=== PATIENT | female | born 1945 | race Hispanic/Latino ===

== ENCOUNTER 2019-02-13 07:40 | Inpatient (IN) | payer MEDICARE ==
[~2019-02-13] VITALS: Ht 160 cm; Wt 82.3 kg
[2019-02-13] VITALS (19 sets, daily range): BP systolic 101–117; BP diastolic 53–67
[~2019-02-13 07:40] MED LIST: CHOL100053 PO; HYDR-4457 PO; LEVO500T2 PO; METO50TA18 PO; MULT-415 PO
[2019-02-13] MEDS ORDERED: FENTANYL CITRATE PF 50 MCG/1 ML 2ML VIAL ONE ×2 (08:07→20:38)
[2019-02-13] MEDS ORDERED: ZOSYN 3.375GM+NS 50ML 50 ML IV ONE ×2 (08:18→13:52)
[2019-02-13 08:38] LABS: BASOPHILS % (AUTO) 0.3 % (0.0-5.0); HEMATOCRIT 32.4 % (36-48); LYMPHOCYTES % (AUTO) 17.2 % (21.0-51.0); MEAN CORPUSCULAR HEMOGLOBIN 31.2 pg (27.0-33.0); MEAN CORPUSCULAR HGB CONC 33.5 g/dL (32.0-36.0); MEAN CORPUSCULAR VOLUME 93.2 fL (79-99); MONOCYTES % (AUTO) 9.2 % (3.0-13.0); NEUTROPHILS % (AUTO) 73.3 % (40.0-77.0); PLATELET COUNT (AUTO) 257 K/uL (130-400); RED BLOOD CELL COUNT(AUTO) 3.48 MIL/uL (4.00-5.50); RED CELL DISTRIBUTION WIDTH 14.7 % (11.0-15.5); WHITE BLOOD COUNT (AUTO) 11.5 K/uL (4.8-10.8)
[2019-02-13 09:27] LABS: CARBON DIOXIDE 25 mmol/L (21-32); CHLORIDE 101 mmol/L (101-111); CREATININE 0.8 mg/dL (0.5-1.5); GLOMERULAR FILTR. RATE CALC 74 mL/min (>60); GLUCOSE,RANDOM 125 mg/dL (70-105); POTASSIUM 3.8 mmol/L (3.5-5.1); SODIUM SERUM 138 mmol/L (136-145); UREA NITROGEN, BLOOD 17 mg/dL (7-18)
[2019-02-13] MEDS ORDERED: VANCOMYCIN 1GM+NS 250ML 250 ML IV ONE (09:27)
[2019-02-13 09:29] LABS: INR 1.02 (0.85-1.15); PARTIAL THROMBOPLASTIN TIME 27.7 SEC (26.3-35.5); PROTHROMBIN TIME 10.7 SEC (9.6-11.6)
[2019-02-13] MEDS ORDERED: IOHEXOL 350 MG/ML 100ML INFUS..BTL IV ONE (09:37)
[2019-02-13 09:38] LABS: ALANINE AMINOTRANSFERASE 15 U/L (12-78); ALBUMIN 2.2 g/dL (3.5-5.0); ASPARTATE AMINOTRANSFERASE 30 U/L (10-37); BILIRUBIN,TOTAL 0.7 mg/dL (0.2-1.0); CREATINE KINASE, TOTAL 44 U/L (21-232); MYOGLOBIN 49 ng/mL (10-92); TOTAL PROTEIN, SERUM 6.8 g/dL (6.0-8.3); TROPONIN I < 0.04 ng/mL (0.00-0.06)
[2019-02-13 10:57] LABS: APPEARANCE,URINE Clear (CLEAR); BILIRUBIN,URINE Negative (NEGATIVE); COLOR,URINE Yellow (YELLOW); GLUCOSE, URINE (UA) Negative (NEGATIVE); KETONES,URINE Negative (NEGATIVE); LEUKOCYTE ESTERASE ,URINE Negative (NEGATIVE); NITRATE,URINE Negative (NEGATIVE); OCCULT BLOOD,URINE Negative (NEGATIVE); PH,URINE 5.5 (5.0-8.0); PROTEIN,URINE Negative (NEGATIVE)
[2019-02-13] MEDS ORDERED: SODIUM CHLORIDE 0.9% 10 ML VIAL IVP PRN (16:00)
[2019-02-13] MEDS ORDERED: VANCOMYCIN PROTOCOL PER PHARMACY IV SCH (16:00)
--- NOTE | 2019-02-13 16:16 | NUR ---
IRRIGATION OF LEFT GROIN WOUND PATIENT CURRENTLY BEING ADMITTED TO ORTHO FLOOR. NOTED DRY DRESSING SOAKED IN PURULENT DRAINAGE AND WOUND PACKED WITH IODOFORM ALSO SOAKED IN PURULENT DRAINAGE. NO NOTED PURULENT DRAINAGE OOZING OUT OF WOUND. INCISION TO LEFT GROIN IRRIGATED WITH 120SS OF STERILE SALINE. CULTURES COLLECTED ORDERED. PACKED WITH 62.5CM OF IODOFORM PACKING. ABDOMINAL PADS PLACED OVER INCISION AND TAPED. PENDING FURTHER ORDERS FROM MD. WILL CONTINUE TO MONITOR PT CLOSELY.
[2019-02-13] MEDS ORDERED: ACETAMINOPHEN EXTRA STRENGTH 500 MG TABLET PO PRN ×3 (16:30→21:40)
[2019-02-13] MEDS ORDERED: HYDROCODONE/ACETAMINOPHEN 5/325 MG TAB PO PRN (16:30)
[2019-02-13] MEDS: ZOSYN 3.375GM+NS 50ML 50 ML IV SCH (17:13)
[2019-02-13] MEDS ORDERED: COMPOUND IV REFRIGERATED 1 EACH IVSOLN MISC PRN (18:45)
--- NOTE | 2019-02-13 20:10 | NUR ---
PACU STAFF HERE TO TRANSFER PATIENT TO OR. PATIENT AWAKE AND ALERT, NO ACUTE DISTRESS NOTED.
[2019-02-13] MEDS ORDERED: PROPOFOL 10 MG/ML 20ML VIAL IV ONE (20:38)
[2019-02-13] MEDS ORDERED: ONDANSETRON HCL 4 MG/2 ML VIAL ONE (20:38)
[2019-02-13] MEDS ORDERED: DEXAMETHASONE SOD PHOSPHATE 10MG/ML 1ML VIAL ONE (20:38)
[2019-02-13] MEDS ORDERED: LIDOCAINE PF 2% 5ML ABBOJECT ONE (20:38)
[2019-02-13] MEDS ORDERED: MIDAZOLAM HCL 1 MG/ML 2ML VIAL ONE (20:38)
[2019-02-13] MEDS: VANCOMYCIN 0.75 GM in N.S. 250 ML IV SCH ×2 (20:50→21:00)
[2019-02-13] MEDS ORDERED: ROCURONIUM 10MG/1ML SYR 10 MG/ML ML ONE (20:59)
[2019-02-13] MEDS ORDERED: NEOSTIGMINE 5MG/5ML SYR IV ONE (21:15)
[2019-02-13] MEDS ORDERED: GLYCOPYRROLATE 1 MG/5 ML SYRINGE ONE (21:15)
--- NOTE | 2019-02-13 22:10 | NUR ---
PACU STAFF CALLED IN REPORT. PATIENT S/P I&D OF LEFT INGUINAL ABSCESS WITH PLACEMENT OF CONTINUOUS WOUND VAC AT 125.
--- NOTE | 2019-02-13 22:23 | NUR ---
PATIENT RETURNED FROM OR WITH CONTINUOUS WOUND VAC AT 125 TO LEFT GROIN. PATIENT AWAKE AND ALERT, STATES FEELS BETTER AND DENIES PAIN AT THIS TIME. POST-OP VITAL SIGNS STABLE AND NO ACUTE DISTRESS NOTED.
[2019-02-13] MEDS: FAMOTIDINE/PF 20 MG/2 ML VIAL IV SCH (22:51)
[2019-02-13] MEDS: SODIUM CHLORIDE 0.9% 1000ML 1,000 ML IV SCH (22:51)
[2019-02-14] VITALS (9 sets, daily range): BP systolic 102–130; BP diastolic 51–75
[2019-02-14] MEDS: ZOSYN 3.375GM+NS 50ML 50 ML IV SCH ×3 (02:32→18:27)
[2019-02-14 05:40] LABS: BASOPHILS % (AUTO) 0.7 % (0.0-5.0); EOSINOPHILS % (AUTO) 1.5 % (0.0-8.0); HEMATOCRIT 26.4 % (36-48); LYMPHOCYTES % (AUTO) 18.4 % (21.0-51.0); MEAN CORPUSCULAR HEMOGLOBIN 31.5 pg (27.0-33.0); MEAN CORPUSCULAR HGB CONC 33.8 g/dL (32.0-36.0); MEAN CORPUSCULAR VOLUME 92.9 fL (79-99); MONOCYTES % (AUTO) 10.9 % (3.0-13.0); NEUTROPHILS % (AUTO) 68.5 % (40.0-77.0); PLATELET COUNT (AUTO) 257 K/uL (130-400); RED BLOOD CELL COUNT(AUTO) 2.84 MIL/uL (4.00-5.50); RED CELL DISTRIBUTION WIDTH 14.8 % (11.0-15.5); WHITE BLOOD COUNT (AUTO) 6.2 K/uL (4.8-10.8)
[2019-02-14 05:52] LABS: CREATININE 0.7 mg/dL (0.5-1.5); POTASSIUM 3.9 mmol/L (3.5-5.1)
--- NOTE | 2019-02-14 07:50 | NUR ---
cm note met with patient and son [place]ia. pt states resides home alone. independent and active athome. no dme. states dc plan is back to same home setting at dc. Addendum: 02/15/19 at 0751 by YONIS BARRETT CM Amended: Links added.
[2019-02-14] MEDS: VANCOMYCIN 0.75 GM in N.S. 250 ML IV SCH ×2 (08:27→21:21)
[2019-02-14] MEDS: ENOXAPARIN SODIUM 40 MG/0.4 ML SYRINGE SQ SCH (08:28)
[2019-02-14] MEDS: FAMOTIDINE/PF 20 MG/2 ML VIAL IV SCH ×2 (08:28→20:18)
[2019-02-14] MEDS: SODIUM CHLORIDE 0.9% 1000ML 1,000 ML IV SCH (10:35)
[2019-02-15] MEDS: ZOSYN 3.375GM+NS 50ML 50 ML IV SCH ×3 (02:29→17:45)
[2019-02-15 03:40] VITALS: BP 110/68
[2019-02-15 05:41] LABS: MEAN CORPUSCULAR HEMOGLOBIN 31.9 pg (27.0-33.0); MEAN CORPUSCULAR HGB CONC 34.2 g/dL (32.0-36.0); MEAN CORPUSCULAR VOLUME 93.4 fL (79-99); NUCLEATED RED BLOOD CELLS 0.2 % (0.0-0.19); PLATELET COUNT (AUTO) 247 K/uL (130-400); RED CELL DISTRIBUTION WIDTH 14.9 % (11.0-15.5); WHITE BLOOD COUNT (AUTO) 5.7 K/uL (4.8-10.8)
[2019-02-15 05:50] LABS: BAND NEUTROPHILS % (MANUAL) 4 % (0-2); LYMPHOCYTES % (MANUAL) 16 % (22-44); MONOCYTES % (MANUAL) 8 % (2-9); SEGMENTED NEUTROPHILS % 72 % (40-70)
[2019-02-15 05:51] LABS: MAN.DIFF COMMENT-IMPRESSION MANUAL DIFFERENTIAL; PLATELET MORPHOLOGY COMMENT ADEQUATE
[2019-02-15 05:56] LABS: CREATININE 0.8 mg/dL (0.5-1.5); POTASSIUM 3.6 mmol/L (3.5-5.1)
[2019-02-15 07:00] VITALS: BP 113/66
[2019-02-15] MEDS: VANCOMYCIN 1GM+NS 250ML 250 ML IV SCH ×2 (09:33→20:41)
[2019-02-15] MEDS: FAMOTIDINE/PF 20 MG/2 ML VIAL IV SCH ×2 (09:34→20:40)
[2019-02-15] MEDS: ENOXAPARIN SODIUM 40 MG/0.4 ML SYRINGE SQ SCH (09:34)
[2019-02-15 11:00] VITALS: BP 104/67
[2019-02-15] MEDS: SODIUM CHLORIDE 0.9% 1000ML 1,000 ML IV SCH (13:17)
[2019-02-15 16:00] VITALS: BP 107/62
--- NOTE | 2019-02-15 18:30 | NUR ---
WOUND VAC DRESSING CHANGE PERFORMED WOUND VAC DRESSING CHANGE TO LEFT GROIN. REMOVED OLD DRESSING, 1 BLACK FOAM, WOUND BED BEEFY RED IN COLOR. LENGTH 9 CM, WIDTH 2CM, DEPTH 2CM. UNDERMINING PRESENT RIGHT SIDE OF INCISION 5CM, AND UNDERMINING ON LEFT SIDE OF INCISION 4CM. CLEANSED WOUND AREA WITH NS, PATTED DRY WITH 4X4 GAUZE. PLACED BLACK FOAM X1 TO LEFT GROIN INCISION, REAPPLIED CONTINUOUS SUCTION 125 MMHG, NO LEAKS NOTED. PATIENT TOLERATED PROCEDURE WELL.
[2019-02-15] MEDS: HYDROCODONE/ACETAMINOPHEN 5/325 MG TAB PO PRN (18:44)
[2019-02-15 20:04] VITALS: BP 117/71
[2019-02-15 23:47] VITALS: BP 117/72
[2019-02-16] MEDS: ZOSYN 3.375GM+NS 50ML 50 ML IV SCH (02:34)
[2019-02-16] MEDS: SODIUM CHLORIDE 0.9% 1000ML 1,000 ML IV SCH (02:35)
[2019-02-16 03:07] VITALS: BP 125/67
[2019-02-16 04:34] LABS: BASOPHILS % (AUTO) 0.9 % (0.0-5.0); EOSINOPHILS % (AUTO) 2.1 % (0.0-8.0); HEMATOCRIT 29.5 % (36-48); MEAN CORPUSCULAR HEMOGLOBIN 31.2 pg (27.0-33.0); MEAN CORPUSCULAR HGB CONC 33.1 g/dL (32.0-36.0); MEAN CORPUSCULAR VOLUME 94.2 fL (79-99); MONOCYTES % (AUTO) 11.3 % (3.0-13.0); NEUTROPHILS % (AUTO) 57.7 % (40.0-77.0); NUCLEATED RED BLOOD CELLS 0.2 % (0.0-0.19); PLATELET COUNT (AUTO) 283 K/uL (130-400); RED BLOOD CELL COUNT(AUTO) 3.13 MIL/uL (4.00-5.50); WHITE BLOOD COUNT (AUTO) 6.6 K/uL (4.8-10.8)
[2019-02-16 04:55] LABS: CREATININE 0.7 mg/dL (0.5-1.5); POTASSIUM 3.3 mmol/L (3.5-5.1)
[2019-02-16] MEDS ORDERED: POTASSIUM CHLORIDE 10% ELIXIR 20 MEQ/15 ML UDCUP PO PRN (05:15)
[2019-02-16] MEDS ORDERED: LIDOCAINE HCL-MPF 1% 2ML VIAL IVP PRN (05:15)
[2019-02-16] MEDS ORDERED: POTASSIUM CHLORIDE 20MEQ/100ML 100 ML IV PRN (05:15)
[2019-02-16] MEDS ORDERED: POTASSIUM CHLORIDE 20 MEQ ERTAB PO ONE (05:19)
[2019-02-16] MEDS ORDERED: MAGNESIUM 2GM PREMIX 50ML 50 ML IV PRN (05:30)
[2019-02-16 07:44] VITALS: BP 117/57
[2019-02-16] MEDS: ENOXAPARIN SODIUM 40 MG/0.4 ML SYRINGE SQ SCH (10:04)
[2019-02-16] MEDS: FAMOTIDINE/PF 20 MG/2 ML VIAL IV SCH ×2 (10:04→21:26)
[2019-02-16] MEDS: POTASSIUM CHLORIDE 20 MEQ ERTAB PO PRN (10:05)
[2019-02-16 11:13] VITALS: BP 131/81
[2019-02-16] MEDS ORDERED: LEVO500T2 PO (16:14)
[2019-02-16 16:19] VITALS: BP 127/75
--- NOTE | 2019-02-16 16:45 | NUR ---
REPORT CALLED TO HYACINTH VELASCO FROM [facility], ROD VERBALIZED UNDERSTANDING. INFORMED HER PENDING WOUND VAC TO ARRIVE. ORDERS TO DISCHARGE WHEN HOME HEALTH AND WOUND VAC CLEARED. WILL CONTINUE TO MONITOR.
--- NOTE | 2019-02-16 18:25 | NUR ---
NO WOUND VAC YET FROM COUNTS INCLUDE 234 BEDS AT THE [facility]. WILL CONTINUE TO MONITOR.
[2019-02-16 20:00] VITALS: BP 119/71
[2019-02-16 23:35] VITALS: BP 128/74
[2019-02-17 04:00] VITALS: BP 135/82
[2019-02-17 04:23] LABS: CREATININE 0.6 mg/dL (0.5-1.5); POTASSIUM 3.6 mmol/L (3.5-5.1)
[2019-02-17 08:12] VITALS: BP 141/86
[2019-02-17] MEDS ORDERED: LEVOFLOXACIN 750 MG TABLET PO SCH (09:00)
[2019-02-17] MEDS: FAMOTIDINE/PF 20 MG/2 ML VIAL IV SCH (10:46)
[2019-02-17] MEDS: ENOXAPARIN SODIUM 40 MG/0.4 ML SYRINGE SQ SCH (10:47)
[2019-02-17 11:41] VITALS: BP 139/89
[2019-02-17] MEDS: HYDROCODONE/ACETAMINOPHEN 5/325 MG TAB PO PRN (13:46)
== END 2019-02-17 17:06 | disposition home health service (06) | DRG 857 ==
LOC: EDH 07:40 → OBSVTOIN 12:28 → EDHIP 12:28 → 4AH 14:12 → 4BH 02-15 12:37
PROVIDERS: ADMIT Family Medicine; ATTEND Family Medicine
PROC: 0J9C0ZZ Drainage of Pelvic Region Subcutaneous Tissue and Fascia, Open Approach (ICD-10-PCS; principal; 2019-02-13 20:38)
DX: T81.41XA Infection following a procedure, superficial incisional surgical site, initial encounter (principal); L02.211 Cutaneous abscess of abdominal wall; C85.90 Non-Hodgkin lymphoma, unspecified, unspecified site; E44.0 Moderate protein-calorie malnutrition; D72.829 Elevated white blood cell count, unspecified; B96.20 Unspecified Escherichia coli [E. coli] as the cause of diseases classified elsewhere; B96.1 Klebsiella pneumoniae [K. pneumoniae] as the cause of diseases classified elsewhere; Y92.89 Other specified places as the place of occurrence of the external cause; Z68.32 Body mass index [BMI] 32.0-32.9, adult; Z90.710 Acquired absence of both cervix and uterus; Z83.3 Family history of diabetes mellitus; Z82.49 Family history of ischemic heart disease and other diseases of the circulatory system; Z80.6 Family history of leukemia; Z80.51 Family history of malignant neoplasm of kidney; Z80.3 Family history of malignant neoplasm of breast
CPT/HCPCS: 36415; 71045; 74177; 80048; 80053; 80202; 81003; 82550; 83605; 83735; 83874; 84484; 85025; 85610; 85730; 87040; 87070; 87076; 87077; 87088; 87186; 93005; A4606; G0378; J1100; J1650; J2001; J2250; J2405; J2543; J2704; J2710; J3010; J3370; J3475; J3490; J7030; Q9967